=== PATIENT | male | born 1940 | race Caucasian/White ===

== ENCOUNTER 2016-04-19 09:02 | Day surgery (SDC) | payer MEDICARE, BC ==
--- NOTE | 2016-04-10 21:33 | HP ---
HISTORY AND PHYSICAL: DATE OF PLANNED ADMISSION AND SURGERY: 04/19/16 HISTORY: Mr. Moura is a 75-year-old white male who is admitted with history of urothelial carcinoma, suspicious urine cytologies for workup with cystoscopy , bladder biopsies, and bilateral retrograde pyelographies. Mr. Moura's history goes back to 2012 when he was worked up for microscopic hematuria and irritative bladder symptoms. 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 The workup of his upper tract at that time was negative. The patient was treated with intravesical BCG with the first 6 weeks, course completed in January 2013. He had maintenance 3 weekly treatments in May 2013 and December 2013. His follow-up cystoscopies showed resolution of the microscopic hematuria and urine cytologies were negative. The patient was noted at that time to have a large obstructing prostate, and he has been maintained on finasteride and on tamsulosin with much improvement in his stream. He has been doing well. He had a recent cystoscopy in the office, which showed mild hyperemia of the bladder wall. There were no papillary lesions seen. The urine cytology, however, was suspicious for urothelial carcinoma. Because of that finding, the patient is admitted for the above procedures. PAST MEDICAL HISTORY AND SYSTEM REVIEW: He is a non-smoker. He is in a very good health. His only other medication is Protonix for acid reflux. He denies any cardiac or pulmonary diseases or symptoms. PHYSICAL EXAMINATION GENERAL: A pleasant, healthy, and fit looking white male, who looks good for his age VITAL SIGNS: Blood pressure 120/70, pulse of 78. HEART: Regular and rhythmic. No murmurs. LUNGS: Clear. ABDOMEN: Soft. No masses, no tenderness, and no CVA tenderness. GENITOURINARY: External genitalia are normal. Rectal exam showed enlarged, but non-suspicious prostate. IMPRESSION: 1. 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 2. Benign prostatic hyperplasia and bladder outlet obstruction with good response to treatment. PLAN: 1. CT urogram. This will be obtained preoperatively. 2. Cystoscopy, bladder biopsies, bilateral retrograde pyelographies and washings to try to determine the source of the suspicious urothelial cells. 3. Additional treatment would depend upon the result of the work-up. 4. I had a long discussion with the patient and his regarding the above plans and all their questions were answered. CC: Alix Davis MD, Krystyna Garner * [id number]/[facility] #: [id number] MTDD
[~2016-04-19 09:02] MED LIST: Buffered Lidocaine 1% SYR 3ML* 3 ML/SYR SYRINGE INTRADERM ONE; Famotidine IV* 10 MG/ML 2 ML (20 mg) IV ONE; Metoclopramide TAB* 10 MG PO ONE
[2016-04-19] MEDS ORDERED: Metoclopramide TAB* 10 MG ONE (09:20)
[2016-04-19] MEDS ORDERED: cefTRIAXone(*) 2 GM ADDV.VIAL IVPB ONE (09:20)
[2016-04-19] MEDS ORDERED: Famotidine IV* 10 MG/ML 2 ML (20 mg) ONE (09:20)
[2016-04-19] MEDS ORDERED: Lidocaine 2% PF * 5 ML VIAL ONE (10:08)
[2016-04-19] MEDS ORDERED: Midazolam* 1 MG/ML 5 ML VIAL (5 MG) ONE (10:08)
[2016-04-19] MEDS ORDERED: Chloroprocaine 2%* 20 ML VIAL ONE (10:08)
[2016-04-19] MEDS ORDERED: fentaNYL* 50 MCG/ML 2 ML VIAL (100 MCG VIAL) ONE ×2 (10:08→10:25)
[2016-04-19] MEDS ORDERED: Ketorolac INJ* 30 MG/ML 1 ML VIAL ONE (10:08)
[2016-04-19] MEDS ORDERED: Propofol* 10 MG/ML 20 ML BTL IV PUSH ONE (10:08)
[2016-04-19] MEDS ORDERED: Ondansetron INJ* 2 MG/ML VIAL ONE ×2 (10:08→14:41)
[2016-04-19] MEDS ORDERED: Dexamethasone IV* 4 MG/ML 1 ML (4 MG) ONE (10:08)
[2016-04-19] MEDS ORDERED: Iohexol 180 (CONTRAST) 10 ML SDV IV ONE (11:02)
[2016-04-19] MEDS ORDERED: Midazolam* 1 MG/ML 2 ML VIAL (2 MG) ONE (11:23)
[2016-04-19] MEDS ORDERED: Phenylephrine IV* 40 MCG/ML 10 ML SYRINGE ONE (11:51)
[2016-04-19] MEDS ORDERED: HYDROmorphone INJ* 1 MG/ML CARPUJECT SYRINGE IV PRN (11:56)
[2016-04-19] MEDS ORDERED: Ondansetron INJ* 2 MG/ML VIAL IV PRN (11:56)
[2016-04-19] MEDS ORDERED: fentaNYL* 50 MCG/ML 2 ML VIAL (100 MCG VIAL) IV PRN (11:56)
[2016-04-19] MEDS ORDERED: oxyCODONE/Acetamin 5/325 MG* TAB PO PRN (11:56)
--- NOTE | 2016-04-19 13:27 | RAD ---
CPT II Codes: 6045F. Indication: Bilateral hydronephrosis. 19 seconds of fluoroscopy time was used. Bilateral retrograde PolyGram was performed. 7 spot images are submitted for review. Right renal collecting system is grossly unremarkable. The left renal collecting system does not appear to be dilated although suboptimal injection. IMPRESSION: Fluoroscopic services provided for referring physician for retrograde pyelogram.
[2016-04-19 14:49] VITALS: BP 153/96
--- NOTE | 2016-04-19 22:04 | OP ---
DATE OF OPERATION: 04/19/16 [facility] DATE OF : 44 SURGEON: Ronnie Quiroz MD ANESTHESIOLOGIST: Narinder March MD ANESTHESIA: Spinal. PRE-OP DIAGNOSES: 1. 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 2. Suspicious urine cytologies, rule out urothelial carcinoma. POST-OP DIAGNOSIS: Pending pathology. OPERATIVE PROCEDURE: 1. Cystoscopy. 2. Bladder washings. 3. Bilateral retrograde pyelographies and washings from right and from left kidneys. 4. Bladder biopsies and fulguration. INDICATIONS: Mr. 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 He was treated with a course of intravesical BCG and he did well. His urine cytologies were negative. Recent cystoscopy showed minimal hyperemia of the bladder wall, but no lesions suspicious of CIS, and no papillary lesions. Urine cytologies however were suspicious for urothelial carcinoma. CT urogram was normal showing normal kidneys and no abnormal filling defects in the collecting systems or in the ureters. Because of the above history and finding, the patient is brought into the operating room for the above procedures. PATHOLOGY AT CYSTOSCOPY: The penile and bulbar urethrae looked normal. The prostatic urethra measured about 3.5 to 4 cm in length and there was significant degree of obstruction by prostate enlargement and by a large median lobe. There was significant degree of hyperemia of the prostatic urethra which bled easily to instrumentation. Examination of the bladder showed diffuse heavy trabeculations. There was minimal degree of bladder wall hyperemia; however, there were no lesions that are typical of carcinoma in situ. There were also no papillary lesions seen. The ureteral orifices looked normal. Upon bilateral retrograde pyelographies, there was bilateral fish hooking of the distal ureters due to the large prostate. Retrograde pyelographies showed normal ureters and collecting systems with no abnormal filling defects, dilatation, or hydronephrosis. DESCRIPTION OF PROCEDURE: After successful spinal anesthesia, the patient was placed in the dorsal lithotomy position and was prepped and draped in the usual manner. Cystoscopy was performed. The findings in the prostatic urethra and in the bladder were noted. The bladder was then irrigated and bladder washings were performed using saline and the washings were sent for cytology. A flexible-tip guidewire was then introduced into the right ureteral orifice and after some difficulty was successfully introduced into the mid ureter. An open- ended catheter was then fed on top of the guidewire and positioned in the distal ureter. Retrograde pyelography was then performed with good demonstration of the right ureter and the collecting system. The open-ended catheter was then introduced over the guidewire inside the renal pelvis. Saline was used for washings and the washings from the right kidney were collected starting in the collecting system and all the way to the distal ureter. and sent for cytology. Exactly, the same procedure was performed on the left kidney and washings were obtained from the left collecting system and the left ureter and sent for cytologies. Using the rigid biopsy forceps, four biopsies were obtained from the bladder including the mild hyperemic areas noted. The sites of the biopsies were then thoroughly fulgurated with coagulation current achieving good hemostasis. After making sure there was good hemostasis, the cystoscope was removed and a size 16-Angolan Mora catheter was passed inside the bladder and the balloon inflated with 10 cc of water. The patient tolerated the procedure well and left the operating room in good condition. The plan is to see the patient next week in the office for review of the cytology and the pathology report and decide on the next steps of treatment. CC: Dr. Alix Davis * [id number]/[facility] #: [id number] JILLIAN
== END 2016-04-19 15:35 | disposition home or self-care (01) ==
LOC: OR 09:02
PROVIDERS: ATTEND Urology
DX: D09.0 Carcinoma in situ of bladder (principal); I10 Essential (primary) hypertension; Z87.891 Personal history of nicotine dependence; N40.0 Benign prostatic hyperplasia without lower urinary tract symptoms
CPT/HCPCS: 74420; 88112; 88305; A9270-GY; J0696; J1100; J1885; J2250; J2400; J2405; J2704; J3010

== ENCOUNTER 2016-04-20 01:13 | Emergency (ER) | payer MEDICARE, BC ==
[2016-04-20 01:25] VITALS: BP 199/99
--- NOTE | 2016-04-20 04:52 | ED ---
Complaint/Male - History of Current Complaint Chief Complaint: EDUrogenitalProblems Time Seen by Provider: 04/20/16 01:32 Hx Obtained From: Patient - Gradual onset bladder pressure since ureteroscopy today by Dr. Quiroz., Family/History Teacher Onset/Duration: Gradual Onset Timing: Constant Severity Initially: Mild Severity Currently: Moderate Location: Suprapubic Associated Signs And Symptoms: Negative - Allergies/Home Medications Allergies/Adverse Reactions: Allergies Allergy/AdvReac Type Severity Reaction Status Date / Time Sulfa Drugs Allergy Severe GI Upset Verified 04/19/16 09:29 PMH/Surg Hx/FS Hx/Imm Hx Endocrine/Hematology History: Denies: Hx Diabetes Cardiovascular History: Reports: Hx Hypertension Denies: Hx Congestive Heart Failure GI History: Reports: Hx Gastroesophageal Reflux Disease - ON MEDICATION FOR, Other GI Disorders - GERD History: Reports: Other Problems/Disorders - BENIGN PROSTRATE HYPERTROPHY Denies: Hx Renal Disease Musculoskeletal History: Reports: Hx Arthritis - CERVICAL SPINE Sensory History: Reports: Hx Contacts or Glasses - READING GLASS Denies: Hx Hearing Aid Opthamlomology History: Reports: Hx Contacts or Glasses - READING GLASS Neurological History: Reports: Hx Migraine - NONE SINCE CARE HOME, Other Neuro Impairments/Disorders - ARTHRITIS C5-6,C6-7 - Cancer History Cancer Type, Location and Year: Bladder Hx Chemotherapy: - INSTALLATION OF BCG TREATMENTS - Surgical History Surgery Procedure, Year, and Place: BLADDER BX X [id number] PER PATIENT Hx Anesthesia Reactions: No Infectious Disease History: No Infectious Disease History: Denies: Traveled Outside the [place] in Last 30 Days - Social History Alcohol Use: None Substance Use Type: Reports: None Smoking Status (MU): Former Smoker Have You Smoked in the Last Year: No Review Of Systems Constitutional: Negative: Fever, Chills Gastrointestinal: Negative: Abdominal Pain All Other Systems Reviewed And Are Negative: Yes Physical Exam Triage Information Reviewed: Yes Vital Signs On Initial Exam: Initial Vitals Temp Pulse Resp BP Pulse Ox 98.2 F 126 26 199/99 97 04/20/16 01:21 04/20/16 01:21 04/20/16 01:21 04/20/16 01:21 04/20/16 01:21 Vital Signs Reviewed: Yes Appearance: Positive: Well-Appearing, Well-Nourished, Pain Distress Skin: Positive: Warm, Skin Color Reflects Adequate Perfusion, Dry Neck: Positive: Supple Respiratory/Lung Sounds: Positive: Clear to Auscultation, Breath Sounds Present Cardiovascular: Positive: Normal, RRR, Pulses are Symmetrical in both Upper and Lower Extremities Abdomen Description: Positive: Nontender, No Organomegaly, Soft. Negative: CVA Tenderness (R), CVA Tenderness (L) Male Genital Exam: Positive: normal genitalia, no hernia. Negative: inguinal tenderness, scrotum tenderness (R), scrotum tenderness (L), testicular tenderness (R), testicular tenderness (L), urethral discharge Musculoskeletal: Positive: Normal, Strength/ROM Intact Neurological: Positive: Normal, Sensory/Motor Intact, Alert, Oriented to Person Place, Time, CN Intact II-III - [place] Coma Scale Coma Scale Total: 15 Diagnostics - Vital Signs Vital Signs Temp Pulse Resp BP Pulse Ox 04/20/16 01:21 98.2 F 126 26 199/99 97 - Laboratory Lab Statement: Any lab studies that have been ordered have been reviewed, and results considered in the medical decision making process. Complaint Male Course/Dx - Differential Dx/Diagnosis Differential Diagnosis/HQI/PQRI: Urinary Tract Infection, Other - Acute urinary retention after ureteroscopy. Morgan and magda. Provider Diagnoses: post operative urinary retention
== END 2016-04-20 02:19 | disposition home or self-care (01) ==
LOC: ED 01:13
DX: N99.89 Other postprocedural complications and disorders of genitourinary system (principal); R33.9 Retention of urine, unspecified; Z87.891 Personal history of nicotine dependence; I10 Essential (primary) hypertension; K21.9 Gastro-esophageal reflux disease without esophagitis; Y83.9 Surgical procedure, unspecified as the cause of abnormal reaction of the patient, or of later complication, without mention of misadventure at the time of the procedure; Y92.9 Unspecified place or not applicable
CPT/HCPCS: 99282

== ENCOUNTER 2017-02-14 15:17 | Emergency (ER) | payer MEDICARE, BC ==
[2017-02-14 15:52] VITALS: BP 149/91
[2017-02-14] MEDS ORDERED: Albuterol/Ipratropium NEB.SOL* Albuterol 2.5 MG/Ipratropium 0.5 MG 3 ML INH ONE (16:15)
--- NOTE | 2017-02-14 16:44 | RAD ---
Indication: Cough, wheezing. 2 views of the chest including dual energy PA views demonstrates no mediastinal shift. Heart is of normal size and configuration. Lung hurt demonstrate no pleural fluid, pneumonia or pneumothorax. IMPRESSION: No active cardiopulmonary disease is noted.
--- NOTE | 2017-02-14 17:17 | UC ---
Throat Pain/Nasal Wilman HPI - HPI Summary HPI Summary: TEN DAYS OF SINUS CONGESTION, FACIAL PRESSURE, SORE THROAT. NO FEVER. LAST TWO DAYS FEELS THAT COUGH IS BECOMING WOSE, BEGINNING TO HAVE WHEEZING. NO HX OF ASTHMA. - History of Current Complaint Chief Complaint: UCRespiratory Stated Complaint: CONGESTION Time Seen by Provider: 02/14/17 16:01 Hx Obtained From: Patient Onset/Duration: Gradual Onset, Lasting Weeks Severity: Moderate Pain Intensity: 0 Pain Scale Used: 0-10 Numeric Cough: Nonproductive Associated Signs & Symptoms: Positive: Wheezing, Hoarseness, Sinus Discomfort, Nasal Discharge - Epiglottits Risk Factors Epiglottis Risk Factors: Negative - Allergies/Home Medications Allergies/Adverse Reactions: Allergies Allergy/AdvReac Type Severity Reaction Status Date / Time Sulfa Drugs Allergy Severe GI Upset Verified 02/14/17 15:43 PMH/Surg Hx/FS Hx/Imm Hx Previously Healthy: Yes - Surgical History Surgical History: Yes Surgery Procedure, Year, and Place: BLADDER BX X [id number] PER PATIENT. TONSILLECTOMY - Family History Known Family History: Positive: Respiratory Disease - Social History Occupation: Retired Lives: With Family Alcohol Use: None Substance Use Type: None Smoking Status (MU): Former Smoker Have You Smoked in the Last Year: No When Did the Patient Quit Smoking/Using Tobacco: 40 YEARS AGO - Immunization History Most Recent Influenza Vaccination: NEVER Most Recent Tetanus Shot: within past 10 years Review of Systems Constitutional: Negative Skin: Negative Eyes: Negative ENT: Nasal Discharge, Sinus Congestion, Sinus Pain/Tenderness Respiratory: Cough Cardiovascular: Negative Gastrointestinal: Negative Genitourinary: Negative Motor: Negative Neurovascular: Negative Musculoskeletal: Negative Neurological: Negative Psychological: Negative Is Patient Immunocompromised?: No All Other Systems Reviewed And Are Negative: Yes Physical Exam Triage Information Reviewed: Yes Appearance: No Pain Distress, Well-Nourished, Ill-Appearing Vital Signs: Initial Vital Signs Temp 97.3 F 02/14/17 15:45 Pulse 59 02/14/17 15:45 Resp 18 02/14/17 15:45 BP 149/91 02/14/17 15:45 Pulse Ox 96 02/14/17 15:45 Vital Signs Reviewed: Yes Eye Exam: Normal ENT: Positive: Nasal congestion, Nasal drainage, TM bulging Dental Exam: Normal Neck exam: Normal Neck: Positive: Supple, Nontender, No Lymphadenopathy Respiratory Exam: Other - COUGH Respiratory: Positive: Chest non-tender, Lungs clear, Normal breath sounds, No respiratory distress, No accessory muscle use Cardiovascular Exam: Normal Cardiovascular: Positive: RRR, No Murmur, Pulses Normal Abdominal Exam: Normal Musculoskeletal Exam: Normal Musculoskeletal: Positive: Strength Intact, ROM Intact Neurological Exam: Normal Psychological Exam: Normal Skin Exam: Normal Diagnostics - Radiology No standard instances Xray Interpretation: Positive (See Comments) - Interpreted by radiologist, reviewed by PAIsa. Interpretation : NO ACTIVE DISEASE Radiology Interpretation Completed By: ED Physician, Radiologist Throat Pain/Nasal Course/Dx - Differential Dx/Diagnosis Differential Diagnosis/HQI/PQRI: Sinusitis, Tonsillitis, URI Provider Diagnoses: SINUSITIS; BRONCHITIS Discharge - Discharge Plan Condition: Stable Disposition: HOME Prescriptions: Albuterol HFA INHALER* [Ventolin HFA Inhaler*] 1 - 2 puff INH Q6H PRN #1 mdi PRN Reason: Wheezing DOXYcycline CAP(*) [DOXYcycline 100MG CAP(*)] 100 mg PO BID #20 cap Patient Education Materials: Sinusitis (ED), Acute Bronchitis (ED) Referrals: Alix Davis MD [Primary Care Provider] -
== END 2017-02-14 17:03 | disposition home or self-care (01) ==
LOC: UCCORT 15:17
DX: J32.9 Chronic sinusitis, unspecified (principal); J40 Bronchitis, not specified as acute or chronic; Z88.2 Allergy status to sulfonamides; Z87.891 Personal history of nicotine dependence
CPT/HCPCS: 71020; 99212; A9270-GY; G0463

== ENCOUNTER → 2017-08-13 07:58 | Day surgery (SDC) | payer MEDICARE, BC ==
--- NOTE | 2017-07-25 06:34 | HP ---
CC: Dr. Alix Davis, [facility] * HISTORY AND PHYSICAL: DATE OF PLANNED ADMISSION AND SURGERY: 08/06/17 HISTORY OF PRESENT ILLNESS: Mr. 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 Mr. Moura's history goes back to 2012 when he was worked up for microscopic hematuria and irritative bladder symptoms. CT urogram was negative. 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 He was treated with intravesical BCG, followed with BCG maintenance treatments. In April 2016 because of mild hyperemia of the bladder wall noted on follow up cystoscopy, and suspicious urine cytologies, he underwent cystoscopy, bilateral retrograde pyelographies, which looked normal. Bilateral washings from the left and the right kidneys were negative for malignancy. Multiple bladder biopsies showed carcinoma in situ. The patient then received another 6 weekss course of intravesical BCG treatment completed in June 2016. He had follow-up cystoscopies and was maintained on intravesical BCG with the last treatment on 05/08/17. Several urine cytologies were obtained and they were all negative showing only inflammation. On recent office cystoscopy, there was irregularity of the posterior bladder neck with suspicious early papillary lesions noted at the junction of the posterior bladder neck and the prostatic urethra. There were also several hyperemic areas in the bladder wall, with the appearance of either carcinoma in situ or BCG reaction. Because of the cystoscopy findings, he is admitted for resection of the above lesions. He has also long history of bladder outlet obstruction and prostate enlargement and has been maintained on finasteride and on tamsulosin 0.4 mg daily. PSA in May 2017 was 2.5 PAST MEDICAL HISTORY AND SYSTEM REVIEW: He is in very good health. He is a nonsmoker. He has history of GERD and is maintained on Protonix. He denies any cardiac or pulmonary diseases or symptoms. ALLERGIES: He reports being allergic to SULFA. PHYSICAL EXAMINATION GENERAL: Pleasant, healthy and fit looking white male, who looks good for his age. VITAL SIGNS: Blood pressure 150/80, pulse of 90. LUNGS: Clear. HEART: Regular and rhythmic. No murmurs. ABDOMEN: Soft. No masses, no tenderness, and no CVA tenderness. IMPRESSION: 1. History of carcinoma in situ recurrent after first course of treatment, just completed second course of maintenance BCG, with suspicious lesions in the posterior bladder neck and hyperemia of the bladder wall. 2. Prostate enlargement and bladder outlet obstruction, on treatment. PLAN: Plan is for cystoscopy, transurethral resection of lesions in the bladder neck and in the bladder. I discussed the above plans in detail with the patient. All his questions were answered. [id number]/[facility] #: [id number] [facility] NETWORK[facility]
[~2017-08-13 07:58] MED LIST changes: +Acetaminophen TAB* 325 MG PO PRN; +Buffered Lidocaine 0.9% SYRIN* 5 ML/SYR SYRINGE INTRADERM ONE; -Buffered Lidocaine 1% SYR 3ML* 3 ML/SYR SYRINGE INTRADERM ONE; +Dexamethasone IV* 4 MG/ML 1 ML (4 MG) ONE; +DiMENhydriNATE IV* 50 MG/ML VIAL IV PUSH PRN; +DiMENhydriNATE IV* 50 MG/ML VIAL ONE; -Famotidine IV* 10 MG/ML 2 ML (20 mg) IV ONE; +Famotidine IV* 10 MG/ML 2 ML (20 mg) ONE; +Fluorescein 10% INJ* 100 MG/ML AMP ONE; +Lidocaine 2% PF * 5 ML VIAL ONE; -Metoclopramide TAB* 10 MG PO ONE; +Midazolam* 1 MG/ML 2 ML VIAL (2 MG) ONE; +Naloxone* 0.4 MG/ML 1 ML VIAL IV PRN; +Ondansetron ODT TAB* 4 MG ONE; +Ondansetron ODT TAB* 4 MG PO PRN; +Oxybutynin TAB* 5 MG ONE; +Propofol* 10 MG/ML 20 ML BTL IV PUSH ONE; +Rocuronium* 10 MG/ML VIAL ONE; +cefTRIAXone(*) 2 GM ADDV.VIAL IVPB ONE; +fentaNYL* 50 MCG/ML 2 ML VIAL (100 MCG VIAL) IV PRN; +fentaNYL* 50 MCG/ML 2 ML VIAL (100 MCG VIAL) ONE; +oxyCODONE/Acetamin 5/325 MG* TAB ONE
--- NOTE | 2017-08-13 12:02 | RAD ---
INDICATION: [Pyelogram, stent insertion COMPARISONS: April 19, 2016 TECHNIQUE: Fluoroscopy was provided for a retrograde pyelogram and stent placement. Total fluoroscopy time is: 15 seconds FINDINGS: Spot images demonstrate contrast within the renal collecting system. A ureteral stent is noted. IMPRESSION: FLUOROSCOPY WAS PROVIDED FOR A RETROGRADE PYELOGRAM AND STENT PLACEMENT CPT II Codes: G9500
[2017-08-13 13:03] VITALS: BP 164/90
--- NOTE | 2017-08-14 18:21 | OP ---
CC: Dr. Davis * DATE OF OPERATION: 08/13/17 - [facility] DATE OF : 44 SURGEON: Dr. Quiroz. ANESTHESIOLOGIST: Dr. Kiko Jameson. ANESTHESIA: General. PRE-OP DIAGNOSES: 1. 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 2. Rule out papillary bladder tumors. POST-OP DIAGNOSES: 1. 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 2. Rule out papillary bladder tumors. OPERATIVE PROCEDURE: 1. Cystoscopy. 2. Multiple bladder biopsies (base of bladder). 3. Transurethral resection of suspicious lesions of the trigone and posterior bladder neck. 4. Right retrograde pyelography and placement of right urethral stent (6-Sammarinese ). INDICATIONS: Mr. 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 At that time, his presentation symptoms were frequency, urgency, and microscopic hematuria. Work-up of the upper tracts was negative. The patient was treated with intravesical BCG. He did fine and had negative follow-up cystoscopies and urine cytologies. In April 2016, he was noted to have suspicious urine cytologies. He was taken to the operating room and underwent a cystoscopy, multiple bladder biopsies, and bilateral retrograde pyelographies and washings. The retrogrades and the washings on both sides were negative. The biopsies showed recurrent carcinoma in situ. The patient was then given a second course of intravesical BCG, followed by maintenance BCG's, with the last maintenance treatment 3 months ago. Recent cystoscopy showed some hyperemia of the base of the bladder wall and some irregularity and new finding of papillary projections noted in the posterior bladder neck and in the trigone. Urine cytologies were again negative. The patient is taken to the operating room to rule out recurrent tumors. The patient has a long history of a prostate enlargement and bladder outlet obstruction and has been maintained on tamsulosin and finasteride. PATHOLOGY AT CYSTOSCOPY: The penile and bulbar urethra looked normal. The prostatic urethra measured 3 cm in length and there was significant degree of obstruction by trilobar hyperplasia of prostate. There were papillary lesions noted in the posterior bladder neck. They were rather friable, and papillary and bullous lesions noted in the posterior bladder neck and the trigone involving the right ureteral orifice. There were a few areas of hyperemia in the base of the bladder. The left ureteral orifice looked normal. The rest of the bladder wall showed diffuse trabeculations, but no suspicious bladder lesions were seen. Upon right retrograde pyelography, there was fullness of the calices. No abnormal filling defects were noted in the ureter or the collecting system. DESCRIPTION OF PROCEDURE: After successful general anesthesia, the patient was placed in the lithotomy position and was prepped and draped for cystoscopy. Cystoscopy was performed. The bladder was inspected and the above findings were noted. Using the biopsy forceps, several biopsies were obtained from the base of the bladder, sampling the more hyperemic lesions that were noted. The sites of the biopsies were then fulgurated with coagulation current. The resectoscope was then introduced inside the bladder. The lesions noted in the trigone, the posterior bladder neck and the junction between the bladder neck and the prostatic urethra were resected down to muscle. The resection involved the right ureteral orifice. The sites of the resection was then fulgurated with coagulation current controlling all the oozing. Because of the resection of the right orifice, decision was made to place a right ureteral stent. The resectoscope was removed and the cystoscope was introduced inside the bladder. A flexibility guidewire was introduced into the right orifice and an open-ended catheter was fed on top of the guidewire and positioned in the distal ureter. Retrograde pyelography was performed. A size 6- Sammarinese stent was then placed with the proximal end coiling in the collecting system and the distal end coiling inside the bladder. The resectoscope was re-introduced inside the bladder. Additional resection of lesions and fulguration were then performed. The resected tissue was evacuated and sent for pathology. Final inspection showed good hemostasis. The left ureteral orifice was intact and a clear efflux was seen coming from it. The scope was removed and a size 20-Sammarinese Mora catheter was passed inside the bladder and the balloon inflated with 50 mL of water. The patient tolerated the procedure well and left the operating room in good condition. The plan is to see the patient in the office in 5 days and the Mora catheter will be removed. Additional treatments will depend upon the pathology. [id number]/[facility] #: [id number] MTDLibra
== END | disposition home or self-care (01) ==
LOC: OR 07:58
PROVIDERS: ATTEND Urology
DX: C67.5 Malignant neoplasm of bladder neck (principal); Z85.51 Personal history of malignant neoplasm of bladder; N40.1 Benign prostatic hyperplasia with lower urinary tract symptoms; N13.8 Other obstructive and reflux uropathy; I10 Essential (primary) hypertension; K21.9 Gastro-esophageal reflux disease without esophagitis
CPT/HCPCS: 74420; 88305; A9270-GY; C1876; J0696; J1100; J1240; J2250; J2704; J3010

== ENCOUNTER 2018-10-22 17:10 | Emergency (ER) | payer MEDICARE, BC ==
[2018-10-22 17:40] VITALS: BP 144/100
--- NOTE | 2018-10-22 18:33 | UC ---
Shoulder Pain HPI - HPI Summary HPI Summary: RIGHT SHOULDER INJURY TODAY. PT WAS PUTTING IN A CULVERT ON HIS PROPERTY. HE CAUGHT HIS ARM IN A STRAP THAT WAS ATTACHED TO A BACKHOE AND PULLED HIS ARM AT THE SHOULDER. PT CAN NOT LIFT HIS ARM FROM THE SHOULDER. PT HAS HAD PROBLEMS WITH THE SAME SHOULDER IN THE PAST. - History of Current Complaint Chief Complaint: UCUpperExtremity Stated Complaint: RT SHOULDER INJURY Time Seen by Provider: 10/22/18 17:27 Hx Obtained From: Patient Onset/Duration: Sudden Onset Timing: Constant Severity Initially: Moderate Severity Currently: Moderate Pain Intensity: 7 Pain Scale Used: 0-10 Numeric Character: Sharp - Lithuanian sharp when he tries to lift his right arm., Dull, Aching Aggravating Factor(s): Lifting, Abduction Alleviating Factor(s): Rest Associated Signs And Symptoms: Positive: Negative - Allergies/Home Medications Allergies/Adverse Reactions: Allergies Allergy/AdvReac Type Severity Reaction Status Date / Time Sulfa (Sulfonamide Allergy GI Upset Verified 10/22/18 17:29 Antibiotics) PMH/Surg Hx/FS Hx/Imm Hx Previously Healthy: Yes Cardiovascular History: Hypertension Cancer History: Other - Bladder cancer - Surgical History Surgical History: Yes Surgery Procedure, Year, and Place: BLADDER BX X 2-CMC-. TONSILLECTOMY. RADICAL CYSTECTOMY - Family History Known Family History: Positive: Respiratory Disease - Social History Alcohol Use: None Substance Use Type: None Smoking Status (MU): Former Smoker Have You Smoked in the Last Year: No When Did the Patient Quit Smoking/Using Tobacco: 40 YEARS AGO - Immunization History Most Recent Influenza Vaccination: NEVER Most Recent Tetanus Shot: within past 10 years Review of Systems All Other Systems Reviewed And Are Negative: Yes Motor: Positive: Decreased ROM - Patient is only able to abduct his right arm approximately 20 before he has sharp pain in the posterior right shoulder. No swelling, bruising, erythema or deformity is noted. Neurovascular: Positive: Negative Musculoskeletal: Positive: Decreased ROM Neurological: Positive: Negative - Good peripheral pulses neuro sensation capillary refill. Is Patient Immunocompromised?: No Physical Exam Triage Information Reviewed: Yes Appearance: Well-Appearing, No Pain Distress, Well-Nourished Vital Signs: Initial Vital Signs Temp 98.6 F 10/22/18 17:33 Pulse 74 10/22/18 17:33 Resp 16 10/22/18 17:33 BP 144/100 10/22/18 17:33 Pulse Ox 98 10/22/18 17:33 Vital Signs Reviewed: Yes Musculoskeletal: Positive: Strength Intact, ROM Limited @ - Range of motion is limited to approximately 20 abduction, he has some pain in the posterior shoulder with supination and pronation., Other: Neurological: Positive: Alert, Muscle Tone Normal - Good peripheral pulses neuro sensation and capillary refill. No deformity is noted, no erythema bruising or swelling. Psychological Exam: Normal Skin Exam: Normal Shoulder Course/Dx - Course Course Of Treatment: Right shoulder x-ray: Negative as interpreted by myself and Dr. Fortune. Patient was given an arm sling for comfort and used to take his arm out every one or 2 hours and do some minor range of motion with his arm. He can apply ice intermittently to the sore area. He may take Tylenol for pain. Definite follow-up with an orthopedist either tomorrow or early next week for a recheck. It may be that the patient has some rotator cuff injury. - Differential Dx/Diagnosis Provider Diagnosis: Sprain of shoulder, right Discharge - Sign-Out/Discharge Documenting (check all that apply): Patient Departure All imaging exams completed and their final reports reviewed: No - Discharge Plan Condition: Fair Disposition: HOME Patient Education Materials: Shoulder Sprain (ED) Referrals: Alix Davis MD [Primary Care Provider] - Izzy Jessica MD [Medical Doctor] - Additional Instructions: Apply ice to the sore area intermittently. Tylenol or Motrin for pain. Definite follow-up with an orthopedist in 3 or 4 days if no improvement. - Billing Disposition and Condition Condition: FAIR Disposition: Home
--- NOTE | 2018-10-23 21:34 | UC ---
- Progress Note Progress Note: Patient Name: REJI ORDAZ Medical Record#: [id number] Ordering Physician: Dang Ramírez NP Acct.#: [id number] : 1940 Age: 78 Sex: M Location: [facility] Exam Date: 10/22/181728 ADM Status: [facility] ER Order Information: SHOULDER RIGHT 2+ VWS Accession Number: [id number] CPT: 30641 INDICATION: Right shoulder injury. TECHNIQUE: 4 views of the right shoulder were obtained. FINDINGS: The soft tissues are unremarkable. The bones are osteopenic. No fracture is identified. Anatomic alignment is maintained. 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 IMPRESSION: NO EVIDENCE OF FRACTURE. R0 Preliminary Imaging Read R0 <Electronically signed by Og Cardoza MD in OV> 10/23/18739 Dictated By: Og Cardoza MD Dictated Date/Time: 10/23/18739 Transcribed Date/Time: 10/23/18738 Copy to: CC:Alix Davis MD; Dang Ramírez NP; Toro Fortune MD Imaging - [facility] [address] [address] ph ([phone]) ph ([phone]) ph ([phone]) This report is only to be considered final once signed by the Provider(s) as displayed in the "<Electronically Signed by >" field (s). Absence of a signature indicates the report is in a draft status and still needs to be finalized. In the event this document was created by someone other than the signing Provider, the individual initiating the document will be listed in the "Entered by:" or "Dictated by:" hurt. 1 of 1 Course/Dx - Diagnoses Provider Diagnoses: Sprain of shoulder, right Discharge - Sign-Out/Discharge Documenting (check all that apply): Post-Discharge Follow Up All imaging exams completed and their final reports reviewed: Yes - Discharge Plan Condition: Fair Disposition: HOME Patient Education Materials: Shoulder Sprain (ED) Referrals: Alix Davis MD [Primary Care Provider] - Izzy Jessica MD [Medical Doctor] - Additional Instructions: Apply ice to the sore area intermittently. Tylenol or Motrin for pain. Definite follow-up with an orthopedist in 3 or 4 days if no improvement. - Billing Disposition and Condition Condition: FAIR Disposition: Home
== END 2018-10-22 18:20 | disposition home or self-care (01) ==
LOC: UCCORT 17:10
DX: S43.401A Unspecified sprain of right shoulder joint, initial encounter (principal); X58.XXXA Exposure to other specified factors, initial encounter; Y93.89 Activity, other specified; Y92.007 Garden or yard of unspecified non-institutional (private) residence as the place of occurrence of the external cause; I10 Essential (primary) hypertension; Z87.891 Personal history of nicotine dependence; Z85.51 Personal history of malignant neoplasm of bladder
CPT/HCPCS: 99213; G0463